=== PATIENT | female | born 1985 | race Caucasian/White ===

== ENCOUNTER 2021-10-03 20:14 | Emergency (ER) | payer MEDICAID, OTHER ==
[~2021-10-03] VITALS: Ht 170.2 cm; Wt 135.0 kg
[2021-10-03] MEDS ORDERED: OLANZAPINE 10 MG/VIAL IM ONE (21:45)
[2021-10-03] MEDS ORDERED: LORAZEPAM 2MG/ML CPJ IM ONE (21:45)
[2021-10-03 21:46] LABS: BASOPHILS % 2.3 % (0.0-2.0); EOSINOPHILS % 1.8 % (0.0-5.0); HEMATOCRIT. 34.9 % (36.0-48.0); LYMPHOCYTES % 53.5 % (20.0-50.0); MEAN CORPUSCULAR HEMOGLOBIN 30.7 pg (28.0-32.0); MEAN CORPUSCULAR VOLUME 89.6 fL (81.0-99.0); MONOCYTES % 6.2 % (2.0-8.0); NEUTROPHILS % 36.2 % (40.0-76.0); PLATELET 425 x1000/uL (130-400); RED CELL DISTRIBUTION WIDTH 19.5 % (11.6-14.6)
[2021-10-03 21:55] LABS: CHLORIDE 105 mEq/L (98-107)
[2021-10-03 21:56] LABS: CLARITY URINE CLOUDY (CLEAR); COLOR URINE YELLOW (YELLOW); KETONES URINE NEGATIVE (NEGATIVE); LEUKOCYTE ESTERASE URINE TRACE (NEGATIVE); NITRITE URINE NEGATIVE (NEGATIVE); OCCULT BLOOD URINE TRACE (NEGATIVE); PH URINE 5.5 (4.5-8.0); PROTEIN URINE 2+ (NEGATIVE); UROBILINOGEN URINE 0.2 E.U./dL (0.2-1.0)
[2021-10-03 22:05] LABS: HCG SCREEN NEGATIVE
[2021-10-03 22:15] LABS: *BARBITURATES SCREEN URINE NEGATIVE (NEGATIVE); OPIATES URINE SCREEN NEGATIVE (NEGATIVE); PHENCYCLIDINE URINE SCREEN NEGATIVE (NEGATIVE)
[2021-10-03 22:16] LABS: *AMPHETAMINES SCREEN URINE NEGATIVE (NEGATIVE); *BENZODIAZEPINES SCREEN URINE NEGATIVE (NEGATIVE); *COCAINE SCREEN URINE NEGATIVE (NEGATIVE); METHADONE URINE SCREEN NEGATIVE (NEGATIVE)
[2021-10-03 22:17] LABS: ETHANOL BLOOD 522 mg/dL
[2021-10-03 22:17] LABS: CANNABINOID URINE SCREEN PRESUMTIVE POSITIVE (NEGATIVE)
[2021-10-04] MEDS: FLUOXETINE HCL 10 MG CAPSULE PO SCH (09:15)
[2021-10-04] MEDS ORDERED: ONDANSETRON HCL 4MG TABLET PO ONE (11:45)
[2021-10-04] MEDS ORDERED: LORAZEPAM 1MG TABLET PO ONE (12:30)
[2021-10-05] MEDS ORDERED: ONDANSETRON 4MG ODT PO ONE (01:45)
[2021-10-05] MEDS ORDERED: LORAZEPAM 2MG/ML CPJ IV ONE (01:45)
[2021-10-05] MEDS ORDERED: LORAZEPAM 1MG TABLET PO ONE ×2 (01:45→11:30)
[2021-10-05] MEDS ORDERED: ONDANSETRON HCL 4MG/2ML INJ IV ONE (01:45)
[2021-10-05] MEDS: FLUOXETINE HCL 10 MG CAPSULE PO SCH (09:00)
[2021-10-05] MEDS ORDERED: GABAPENTIN 300MG CAPSULE PO SCH (14:00)
[2021-10-05 14:16] VITALS: BP 154/61
[2021-10-06] MEDS ORDERED: FLUOXETINE HCL 10 MG CAPSULE PO SCH (09:00)
== END 2021-10-05 14:13 | disposition short-term general hospital (02) ==
LOC: ER 20:14
DX: R45.851 Suicidal ideations (principal); Z98.890 Other specified postprocedural states; Z20.822 Contact with and (suspected) exposure to COVID-19
CPT/HCPCS: 36415; 80053; 80305; 80307; 80320; 80329; 81003; 84703; 85025; 96372; 99285; C9803; J2060; J3490; Q0162; U0003; U0005; G0480

== ENCOUNTER 2023-06-07 15:19 | Emergency (ER) | payer MEDICAID, OTHER ==
[~2023-06-07] VITALS: Ht 162.6 cm; Wt 64.0 kg
[2023-06-07 17:35] LABS: BASOPHILS % 0.4 % (0.0-2.0); EOSINOPHILS % 0.7 % (0.0-5.0); HEMATOCRIT. 34.8 % (36.0-48.0); HEMOGLOBIN. 11.6 g/dL (12.0-16.0); LYMPHOCYTES % 10.3 % (20.0-50.0); MEAN CORPUSCULAR HEMOGLOBIN 32.4 pg (28.0-32.0); MEAN CORPUSCULAR HGB CONC 33.5 g/dL (31.0-37.0); MEAN CORPUSCULAR VOLUME 96.7 fL (81.0-99.0); MEAN PLATELET VOLUME 7.4 fl (7.4-10.4); MONOCYTES % 9.6 % (2.0-8.0); PLATELET 455 x1000/uL (130-400); RED CELL DISTRIBUTION WIDTH 15.8 % (11.6-14.6); WHITE BLOOD COUNT 10.7 x1000/uL (4.5-11.0)
[2023-06-07 17:38] LABS: PROTHROMBIN TIME 10.9 sec (9.6-11.0)
[2023-06-07 17:44] LABS: HCG SCREEN NEGATIVE
[2023-06-07 17:49] LABS: AMMONIA < 10 uMol/L (<32)
[2023-06-07 17:50] LABS: ACETAMINOPHEN < 2 ug/mL (10-30); ALANINE AMINOTRANSFERASE 15 IU/L (10-49); ALBUMIN 4.3 g/dL (3.2-4.8); ASPARTATE AMINOTRANSFERASE 24 IU/L (<34); BILIRUBIN TOTAL 0.8 mg/dL (0.1-1.0); CALCIUM 9.8 mg/dL (8.7-10.4); CARBON DIOXIDE 24 mEq/L (21-32); CHLORIDE 105 mEq/L (98-107); CREATININE 0.6 mg/dL (0.6-1.0); GLUCOSE 74 mg/dL (70-105); POTASSIUM 3.7 mEq/L (3.5-5.1); PROTEIN TOTAL 6.9 g/dL (6.0-8.3); SODIUM 139 mEq/L (136-145); THYROID STIMULATING HORMONE 1.67 uIU/mL (0.55-4.78); UREA NITROGEN BLOOD 19 mg/dL (9-23)
[2023-06-07 18:04] LABS: ETHANOL BLOOD < 10 mg/dL (<10)
[2023-06-07] MEDS ORDERED: ZIPRASIDONE MESYLATE 20MG/VIAL IM ONE (19:45)
[2023-06-07] MEDS ORDERED: ZIPRASIDONE MESYLATE 20MG/VIAL IM NR (20:00)
[2023-06-08] MEDS ORDERED: MIDAZOLAM HCL 2 MG/2 ML VIAL IM ONE (08:00)
[2023-06-08] MEDS ORDERED: HALOPERIDOL LACTATE 5MG/ML VIAL IM ONE (08:00)
[2023-06-08] MEDS ORDERED: DIPHENHYDRAMINE 50MG/ML VIAL IM PRN (08:00)
[2023-06-08 10:05] VITALS: O2SAT 98
[2023-06-08] MEDS: OLANZAPINE 5MG TABLET ODT PO SCH (17:00)
[2023-06-08 20:38] LABS: CLARITY URINE CLOUDY (CLEAR); COLOR URINE YELLOW (YELLOW); GLUCOSE URINE NEGATIVE (NEGATIVE); KETONES URINE 1+ (NEGATIVE); LEUKOCYTE ESTERASE URINE 1+ (NEGATIVE); NITRITE URINE POSITIVE (NEGATIVE); OCCULT BLOOD URINE NEGATIVE (NEGATIVE); PH URINE 5.5 (4.5-8.0); PROTEIN URINE TRACE (NEGATIVE); SPECIFIC GRAVITY URINE 1.026 (1.005-1.030); UROBILINOGEN URINE 0.2 E.U./dL (0.2-1.0)
[2023-06-08 20:55] LABS: BACTERIA URINE 4+; RBC URINE 0-2 /hpf (0-2); SQUAMOUS EPITHELIAL CELL URINE 1+ /lpf (RARE/1+)
[2023-06-08 20:56] LABS: *AMPHETAMINES SCREEN URINE PRESUMPTIVE POSITIVE (NEGATIVE); *BARBITURATES SCREEN URINE NEGATIVE (NEGATIVE); *BENZODIAZEPINES SCREEN URINE PRESUMPTIVE POSITIVE (NEGATIVE); *COCAINE SCREEN URINE NEGATIVE (NEGATIVE); CANNABINOID URINE SCREEN PRESUMPTIVE POSITIVE (NEGATIVE); ECSTASY MDMA SCREEN URINE CONF.TEST INDICATED (NEGATIVE); METHADONE URINE SCREEN Neg (NEGATIVE); OPIATES URINE SCREEN NEGATIVE (NEGATIVE); PHENCYCLIDINE URINE SCREEN NEGATIVE (NEGATIVE)
[2023-06-08] MEDS ORDERED: DIPHENHYDRAMINE 50MG CAPSULE PO ONE (21:45)
[2023-06-08] MEDS ORDERED: CEFTRIAXONE SODIUM 500 MG/VIAL IM ONE (21:45)
[2023-06-08] MEDS ORDERED: LIDOCAINE HCL 1% 20ML VIAL (Pyxis) INJ INFIL ONE (21:45)
[2023-06-08] MEDS ORDERED: DIPHENHYDRAMINE 25MG CAPSULE PO NR (22:15)
[2023-06-08] MEDS: NITROFURANTOIN 100MG M/M CAPSULE PO SCH (22:22)
[2023-06-09] MEDS: NITROFURANTOIN 100MG M/M CAPSULE PO SCH ×2 (09:00→21:48)
[2023-06-09] MEDS: OLANZAPINE 5MG TABLET ODT PO SCH ×2 (09:00→17:00)
[2023-06-10] MEDS: NITROFURANTOIN 100MG M/M CAPSULE PO SCH (09:58)
[2023-06-10] MEDS: OLANZAPINE 5MG TABLET ODT PO SCH (09:58)
[2023-06-10 10:20] VITALS: BP 101/52; PULSE 64; RESP 18; TEMP 98.4
== END 2023-06-10 11:02 | disposition home or self-care (01) ==
LOC: ER 15:19
DX: R45.1 Restlessness and agitation (principal); F32.9 Major depressive disorder, single episode, unspecified
CPT/HCPCS: 80053; 80307; 80329; 80320; 82140; 84703; 83690; 84443; 85025; 85610; 36415; 96372 ×2; 99285; J3486; Q0163; J0696; J1200; J1630; J3490; J2250; G0480

== ENCOUNTER 2024-06-04 14:27 | Emergency (ER) | payer SELFPAY ==
[~2024-06-04] VITALS: Ht 167.6 cm; Wt 60.0 kg
[2024-06-04] MEDS: LORAZEPAM 2MG/ML INJ IM ONE ×2 (16:10→22:15)
[2024-06-04] MEDS: HALOPERIDOL LACTATE 5MG/ML VIAL IM ONE (16:11)
[2024-06-04 19:38] LABS: BASOPHILS % 1.5 % (0.0-2.0); EOSINOPHILS % 3.1 % (0.0-5.0); HEMATOCRIT. 34.4 % (36.0-48.0); HEMOGLOBIN. 11.7 g/dL (12.0-16.0); MEAN CORPUSCULAR HGB CONC 34.1 g/dL (31.0-37.0); MEAN CORPUSCULAR VOLUME 99.8 fL (81.0-99.0); MEAN PLATELET VOLUME 7.7 fl (7.4-10.4); MONOCYTES % 6.2 % (2.0-8.0); NEUTROPHILS % 49.2 % (40.0-76.0); PLATELET 309 x1000/uL (130-400); RED BLOOD CELL COUNT 3.45 mill/uL (4.2-5.4); RED CELL DISTRIBUTION WIDTH 14.4 % (11.6-14.6); WHITE BLOOD COUNT 6.4 x1000/uL (4.5-11.0)
[2024-06-04 19:45] LABS: CHLORIDE 104 mEq/L (98-107); POTASSIUM 3.8 mEq/L (3.5-5.1); SODIUM 140 mEq/L (136-145)
[2024-06-04 19:46] LABS: CALCIUM 9.4 mg/dL (8.7-10.4); CARBON DIOXIDE 26 mEq/L (21-32)
[2024-06-04 19:51] LABS: CREATININE 0.7 mg/dL (0.6-1.0); GLUCOSE 74 mg/dL (70-105); UREA NITROGEN BLOOD 10 mg/dL (9-23)
[2024-06-04 19:52] LABS: ETHANOL BLOOD 251 mg/dL (<10)
[2024-06-04 19:53] LABS: ACETAMINOPHEN < 2 ug/mL (10-30)
[2024-06-04 20:34] LABS: CLARITY URINE CLOUDY (CLEAR); COLOR URINE YELLOW (YELLOW); GLUCOSE URINE NEGATIVE (NEGATIVE); KETONES URINE TRACE (NEGATIVE); LEUKOCYTE ESTERASE URINE 1+ (NEGATIVE); NITRITE URINE NEGATIVE (NEGATIVE); OCCULT BLOOD URINE NEGATIVE (NEGATIVE); PROTEIN URINE TRACE (NEGATIVE); SPECIFIC GRAVITY URINE 1.012 (1.005-1.030); UROBILINOGEN URINE 0.2 E.U./dL (0.2-1.0)
[2024-06-04 20:51] LABS: *AMPHETAMINES SCREEN URINE PRESUMPTIVE POSITIVE (NEGATIVE); *BARBITURATES SCREEN URINE NEGATIVE (NEGATIVE); *BENZODIAZEPINES SCREEN URINE NEGATIVE (NEGATIVE); *COCAINE SCREEN URINE NEGATIVE (NEGATIVE); CANNABINOID URINE SCREEN PRESUMPTIVE POSITIVE (NEGATIVE); METHADONE URINE SCREEN NEGATIVE (NEGATIVE); OPIATES URINE SCREEN NEGATIVE (NEGATIVE); PHENCYCLIDINE URINE SCREEN NEGATIVE (NEGATIVE)
[2024-06-04 20:52] LABS: ECSTASY MDMA SCREEN URINE NEGATIVE (NEGATIVE)
[2024-06-04 20:59] LABS: BACTERIA URINE 2+; RBC URINE NONE SEEN /hpf (0-2); SQUAMOUS EPITHELIAL CELL URINE FEW /lpf (RARE/1+)
[2024-06-04 22:46] LABS: HCG SCREEN NEGATIVE
[2024-06-05] MEDS: NITROFURANTOIN 100MG M/M CAPSULE PO SCH (10:31)
[2024-06-05 15:40] VITALS: BP 139/78; PULSE 90; RESP 17; TEMP 36.72516; O2SAT 99
== END 2024-06-05 16:12 ==
LOC: ER 14:30
DX: R45.851 Suicidal ideations (principal); E03.9 Hypothyroidism, unspecified; F32.9 Major depressive disorder, single episode, unspecified; F15.10 Other stimulant abuse, uncomplicated; Z20.822 Contact with and (suspected) exposure to COVID-19
CPT/HCPCS: 80305; 80048; 81003; 80307; 80329; 80320 ×2; 84703; 85025; 36415 ×2; 96372; 99285; 87426; J1630; J2060; G0480

== ENCOUNTER 2025-04-19 21:07 | Emergency (ER) | payer MEDICAID ==
[~2025-04-19] VITALS: Ht 160 cm; Wt 68.0 kg
[2025-04-19 21:27] VITALS: O2SAT 100
[2025-04-20 04:20] VITALS: BP 134/74; PULSE 80; RESP 17; TEMP 36.3; O2SAT 99
== END 2025-04-20 04:27 | disposition home or self-care (01) ==
LOC: ER 21:07
DX: F10.129 Alcohol abuse with intoxication, unspecified (principal); E03.8 Other specified hypothyroidism; Z59.00 Homelessness unspecified; Y90.9 Presence of alcohol in blood, level not specified
CPT/HCPCS: 99283

== ENCOUNTER 2025-04-22 09:29 | Emergency (ER) | payer MEDICAID ==
[~2025-04-22] VITALS: Ht 167.6 cm; Wt 63.0 kg
[2025-04-22 09:51] VITALS: O2SAT 99
[2025-04-22 10:23] LABS: BASOPHILS % 0.9 % (0.0-2.0); EOSINOPHILS % 2.4 % (0.0-5.0); HEMATOCRIT. 37.8 % (36.0-48.0); HEMOGLOBIN. 12.8 g/dL (12.0-16.0); LYMPHOCYTES % 22.2 % (20.0-50.0); MEAN PLATELET VOLUME 6.7 fl (7.4-10.4); MONOCYTES % 5.1 % (2.0-8.0); NEUTROPHILS % 69.4 % (40.0-76.0); PLATELET 415 x1000/uL (130-400); RED BLOOD CELL COUNT 3.88 mill/uL (4.2-5.4); RED CELL DISTRIBUTION WIDTH 14.9 % (11.6-14.6)
[2025-04-22 10:38] LABS: CREATININE 0.7 mg/dL (0.6-1.0)
[2025-04-22 10:39] LABS: UREA NITROGEN BLOOD 10 mg/dL (9-23)
[2025-04-22 11:05] LABS: HCG SCREEN POSITIVE
[2025-04-22] MEDS: LORAZEPAM 2MG/ML UD SYRINGE IM NR (11:30)
[2025-04-22] MEDS: OLANZAPINE 10 MG/VIAL IM ONE (11:30)
[2025-04-22 12:06] LABS: *AMPHETAMINES SCREEN URINE PRESUMPTIVE POSITIVE (NEGATIVE); *BARBITURATES SCREEN URINE NEGATIVE (NEGATIVE); *BENZODIAZEPINES SCREEN URINE PRESUMPTIVE POSITIVE (NEGATIVE); *COCAINE SCREEN URINE NEGATIVE (NEGATIVE); CANNABINOID URINE SCREEN PRESUMPTIVE POSITIVE (NEGATIVE); ECSTASY MDMA SCREEN URINE CONF.TEST INDICATED (NEGATIVE); METHADONE URINE SCREEN NEGATIVE (NEGATIVE); OPIATES URINE SCREEN NEGATIVE (NEGATIVE); PHENCYCLIDINE URINE SCREEN NEGATIVE (NEGATIVE)
[2025-04-23 17:38] VITALS: BP 142/74; PULSE 65; RESP 16; TEMP 36.7; O2SAT 98
== END 2025-04-23 17:37 ==
LOC: ER 09:29
DX: R45.851 Suicidal ideations (principal); F15.10 Other stimulant abuse, uncomplicated; F12.90 Cannabis use, unspecified, uncomplicated; E03.8 Other specified hypothyroidism; F31.9 Bipolar disorder, unspecified; R10.20 Pelvic and perineal pain unspecified side; Z20.822 Contact with and (suspected) exposure to COVID-19; Z79.899 Other long term (current) drug therapy
CPT/HCPCS: 80305; 80048; 80307; 80329; 80320; 84703; 84702; 85025; 36415; 76801; 76817; 96372; 99285; 87426; J3490; J2060; G0480